=== PATIENT | male | born 1950 | race Caucasian/White ===

== ENCOUNTER 2019-01-04 11:09 | Observation (INO) ==
--- NOTE | 2019-01-04 11:24 | Emergency Department Note ---
Disposition Clinical Impression: Atrial fibrillation Qualifiers: Atrial fibrillation type: unspecified Qualified Code(s): I48.91 - Unspecified atrial fibrillation Disposition: Admitted As Inpatient Condition: Good Forms: ED Satisfaction Letter Time of Disposition: 12:36 Arrhythmia/Palpitations HPI - General Chief Complaint: ED Arrhythmia/Palpitations Stated Complaint: Afib- sent from endo Time Seen by Provider: 01/04/19 11:15 Source: patient Mode of arrival: ambulatory Limitations: no limitations Nursing Notes Reviewed: Yes Vital Signs Reviewed: Yes - History of Present Illness HPI Narrative: Patient is transferred over from endoscopy after he had routine screening colonoscopy and was noted to have atrial fibrillation without rapid rate. He has very lightheadness post colonoscopy, but is essentially asymptomatic. He denies any history of similar symptoms. He denies any specific vomiting or exacerbating factors. Symptoms began after endoscopy. He denies any chest pain, dyspnea, palpitations, confusion, recent illness, abdominal pain, melena or hematochezia, change in urination or bowel movements, rashes or edema. He denies any medication change or noncompliance. He is not on any rate co ntrolling medications at home. The after his colonoscopy showed atrial fibrillation at 84 without any ischemic changes. Pt Subjective Complaint: atrial fibrillation - Related Data Allergies Allergy/AdvReac Type Severity Reaction Status Date / Time No Known Allergies Allergy Verified 01/04/19 09:18 All systems ED: reviewed and negative except as stated. Constitutional: Denies: fever, chills, weakness, weight change Eyes: Denies: eye pain, eye discharge Cardiovascular: Denies: chest pain, dyspnea on exertion Respiratory: Denies: cough, dyspnea, wheezes, hemoptysis, stridor Gastrointestinal: Denies: abdominal pain, nausea, vomiting, diarrhea, constipation, hematemesis, melena, hematochezia Genitourinary: Denies: urgency, dysuria, frequency, hematuria Musculoskeletal: Denies: back pain, neck pain, arthralgia, myalgia Integumentary: Denies: rash, abrasion, lesions Neurological: Denies: headache, weakness, numbness, paresthesias, confusion, abnormal gait, vertigo Psychiatric: Denies: anxiety, depression, suicidal thoughts, homicidal thoughts, auditory hallucinations, visual hallucinations Endocrine: Denies: fatigue, heat or cold intolerance Hematological/Lymphatic: Denies: easy bleeding, easy bruising Allergic/Immunologic: Denies: facial swelling, urticaria Past Medical History - Past Medical History Attestation: Yes The following information was validated with the patient. Source: patient Medical history: Reports: asthma, hypertension, other Surgical history: Reports: appendectomy, cholecystectomy, orthopedic, other, vasectomy, other Psychiatric history: Reports: no psych history - Social History Smoking Status: Never smoker Alcohol use: Reports: none Drug use: Reports: none Physical Exam - General Limitations: no limitations General appearance: alert, in no apparent distress - Head Head exam: atraumatic, normocephalic, normal inspection - Eye Eye exam: Present: normal appearance, PERRL, EOMI - ENT ENT exam: normal exam, normal oropharynx, mucous membranes moist - Neck Neck exam: Present: normal inspection, full ROM, trachea midline - Chest Chest inspection: Present: normal inspection, symmetric chest wall rise - Respiratory Respiratory exam: Present: normal lung sounds bilaterally. Absent: respiratory distress - Cardiovascular Cardiovascular exam: Present: regular rate, irregular rhythm, normal heart sounds - Abdominal Exam Abdominal exam: Present: soft, Non-Tender. Absent: tenderness, distention, guarding, rebound, rigidity - Extremities Exam Extremities exam: Present: normal inspection, full ROM. Absent: tenderness, pedal edema - Back Exam Back exam: Present: normal inspection, full ROM. Absent: tenderness - Neurological Exam Neurological exam: Present: alert, oriented X3 - Psychiatric Psychiatric exam: Present: normal affect, normal mood - Skin Skin exam: Present: warm, dry Course Course Narrative: Patient found to be in new onset atrial fibrillation without rapid rate. He remains essentially symptomatic in the emergency department. No acute lab abnormalities. Heart rate ranges from 8200 in the emergency department. I give the patient dose of Lovenox for his chads vasc of 2-3. Patient placed on hospitalist service for further evaluation and management. Vital Signs Temperature 97.5 F L 01/04/19 11:18 Pulse Rate 84 01/04/19 11:18 Respiratory Rate 16 01/04/19 11:18 Blood Pressure 131/91 01/04/19 11:18 O2 Sat by Pulse Oximetry 99 01/04/19 11:18 Temperature 97.5 F L 01/04/19 11:18 Pulse Rate 84 01/04/19 11:18 Respiratory Rate 16 01/04/19 11:18 Blood Pressure 131/91 01/04/19 11:18 O2 Sat by Pulse Oximetry 99 01/04/19 11:18 Oxygen Delivery Oxygen Delivery Nasal Cannula Arrhythmia/Palpitations - Lab Data Result diagrams: 01/04/19 11:34 01/04/19 11:34 Lab Results 01/04/19 01/04/19 01/04/19 Range/Units 11:34 11:34 11:34 WBC 7.7 (4.3-11.1) K/mcL RBC 5.85 H (4.19-5.50) M/mcL Hgb 16.6 (12.9-16.9) g/dL Hct 50.4 H (37.5-50.1) % MCV 86.2 (83.0-100.0) fL MCH 28.4 (28.0-33.3) pg MCHC 32.9 (31.6-35.5) g/dL RDW 14.1 (11.5-14.5) % Plt Count 240 (140-400) K/mcL MPV 11.1 (9.4-12.4) fL Immature Gran % 0.3 (0-4) % Seg Neutrophils % 71.7 % Lymphocytes % 19.0 % Monocytes % 7.7 % Eosinophils % 0.9 % Basophils % 0.4 % Neutrophils # 5.5 (1.6-8.9) K/mcL Lymphocytes # 1.5 (0.6-4.6) K/mcL Monocytes # 0.6 (0.0-1.3) K/mcL Eosinophils # 0.1 (0.0-0.6) K/mcL Basophils # 0.0 (0.0-0.2) K/mcL PT 13.1 H (9.4-12.1) Seconds INR 1.2 APTT 37.4 H (26.0-36.0) Seconds Sodium 140 (136-145) mEq/L Potassium 4.4 (3.5-5.1) mEq/L Chloride 105 (98-107) mEq/L Carbon Dioxide 27 (23-29) mEq/L BUN 12 (8-23) mg/dL Creatinine 0.80 (0.70-1.30) mg/dL Est GFR ( Amer) > 60 (> 60) Est GFR (Non-Af Amer) > 60 (> 60) BUN/Creatinine Ratio 15 (6-26) Glucose 118 H (70-105) mg/dL Calculated Osmolality 291 (280-300) Calcium 9.8 (8.6-10.3) mg/dL Phosphorus 3.1 (2.7-4.5) mg/dL Magnesium 1.9 (1.6-2.6) mg/dL Troponin I < 0.03 (< 0.04) ng/mL TSH (0.340-5.600) mcIU/mL 01/04/19 Range/Units 11:34 WBC (4.3-11.1) K/mcL RBC (4.19-5.50) M/mcL Hgb (12.9-16.9) g/dL Hct (37.5-50.1) % MCV (83.0-100.0) fL MCH (28.0-33.3) pg MCHC (31.6-35.5) g/dL RDW (11.5-14.5) % Plt Count (140-400) K/mcL MPV (9.4-12.4) fL Immature Gran % (0-4) % Seg Neutrophils % % Lymphocytes % % Monocytes % % Eosinophils % % Basophils % % Neutrophils # (1.6-8.9) K/mcL Lymphocytes # (0.6-4.6) K/mcL Monocytes # (0.0-1.3) K/mcL Eosinophils # (0.0-0.6) K/mcL Basophils # (0.0-0.2) K/mcL PT (9.4-12.1) Seconds INR APTT (26.0-36.0) Seconds Sodium (136-145) mEq/L Potassium (3.5-5.1) mEq/L Chloride (98-107) mEq/L Carbon Dioxide (23-29) mEq/L BUN (8-23) mg/dL Creatinine (0.70-1.30) mg/dL Est GFR ( Amer) (> 60) Est GFR (Non-Af Amer) (> 60) BUN/Creatinine Ratio (6-26) Glucose (70-105) mg/dL Calculated Osmolality (280-300) Calcium (8.6-10.3) mg/dL Phosphorus (2.7-4.5) mg/dL Magnesium (1.6-2.6) mg/dL Troponin I (< 0.04) ng/mL TSH 1.219 (0.340-5.600) mcIU/mL
[2019-01-04] MEDS ORDERED: 0.9 % Sodium Chloride 1,000 ML IVC ONE (11:27)
[2019-01-04 11:52] LABS: Basophils % 0.4 %; Eosinophils # 0.1 K/mcL (0.0-0.6); Eosinophils % 0.9 %; Hematocrit 50.4 % (37.5-50.1); Hemoglobin 16.6 g/dL (12.9-16.9); Immature Granulocytes % 0.3 % (0-4); Lymphocytes # 1.5 K/mcL (0.6-4.6); Mean Corpuscular HGB Conc 32.9 g/dL (31.6-35.5); Mean Corpuscular Hemoglobin 28.4 pg (28.0-33.3); Mean Corpuscular Volume 86.2 fL (83.0-100.0); Mean Platelet Volume 11.1 fL (9.4-12.4); Monocytes # 0.6 K/mcL (0.0-1.3); Monocytes % 7.7 %; Neutrophils # 5.5 K/mcL (1.6-8.9); Platelet Count 240 K/mcL (140-400); Red Blood Count 5.85 M/mcL (4.19-5.50); Red Cell Distribution Width 14.1 % (11.5-14.5); Segmented Neutrophils % 71.7 %
[2019-01-04 12:07] LABS: INR 1.2; Prothrombin Time 13.1 Seconds (9.4-12.1)
[2019-01-04 12:09] LABS: Activated Partial Thrombo Time 37.4 Seconds (26.0-36.0)
[2019-01-04 12:12] LABS: BUN/Creatinine Ratio 15 (6-26); Blood Urea Nitrogen 12 mg/dL (8-23); Calcium 9.8 mg/dL (8.6-10.3); Carbon Dioxide 27 mEq/L (23-29); Chloride 105 mEq/L (98-107); Glucose 118 mg/dL (70-105); Magnesium 1.9 mg/dL (1.6-2.6); Osmolality,Calculated 291 (280-300); Phosphorous 3.1 mg/dL (2.7-4.5); Potassium 4.4 mEq/L (3.5-5.1); Sodium 140 mEq/L (136-145); Troponin I < 0.03 ng/mL (< 0.04); eGFR For Non-African Americans > 60 (> 60)
[2019-01-04] MEDS ORDERED: *HR* Enoxaparin 40 MG/0.4 ML SYRINGE SQ ONE (12:34)
[2019-01-04] MEDS ORDERED: *HR* Enoxaparin 100 MG/ML SYRINGE SQ ONE (13:00)
[2019-01-04 13:33] LABS: Bilirubin,Urine Negative (Negative); Blood,Urine Negative (Negative); Clarity,Urine Clear (Clear); Color,Urine Yellow (Yellow); Glucose,Urine (UA) Normal (Normal); Ketones,Urine Negative (Negative); Leukocyte Esterase,Urine Negative (Negative); Nitrite,Urine Negative (Negative); PH,Urine 5.5 pH Units (5.0-8.0); Protein,Urine 30 mg/dL (Neg-Trace); Specific Gravity,Urine 1.018 (1.010-1.025); Urobilinogen,Urine Normal (Normal)
[2019-01-04 13:37] LABS: Bacteria,Urine None Seen per hpf (None-Few); Hyaline Casts,Urine None Seen per lpf (None-Few); RBC,Urine 0-3 per hpf (0-3); Squamous Epithelial Cell,Urine Moderate per lpf (None-Few); WBC,Urine 0-3 per hpf (0-3)
[2019-01-04 13:56] LABS: Amphetamine Screen,Urine Negative ng/mL (Cutoff=1000); Barbiturate Screen,Urine Negative ng/mL (Cutoff=200); Benzodiazepines Screen,Urine Negative ng/mL (Cutoff=200); Cannabinoid Screen,Urine Negative ng/mL (Cutoff = 50); Cocaine Screen,Urine Negative ng/mL (Cutoff= 300); Opiate Screen,Urine Negative ng/mL (Cutoff=300); Phencyclidine Screen,Urine Negative ng/mL (Cutoff=25)
[2019-01-04] MEDS ORDERED: Ondansetron 4 MG/2 ML VIAL IVP PRN (14:52)
[2019-01-04] MEDS ORDERED: Naloxone 0.4 MG/ML INJ IVP PRN (14:52)
[2019-01-04] MEDS ORDERED: *HR* HYDROcodone/Acet 5/325 mg TABLET PO PRN (14:52)
[2019-01-04] MEDS ORDERED: Acetaminophen 325 MG TABLET PO PRN (14:52)
--- NOTE | 2019-01-04 15:36 | Internal Med History&Physical ---
Date of Encounter: 01/04/19 Time of Encounter: 15:33 Internal Medicine - H&P: HPI Chief complaint: Afib Admitted From: Emergency Dept Plans for Post Hospital Care: Home History of present illness: Mr. Cowan is a 68 year old male with known PMH of HTN and Asthma patient had scheduled elective colonoscopy today. Due and colonoscopy he was found to have new onset a fib with a rate controlled. However post persistent patient complained about lightheadedness/dizziness and lethargic. Patient was sent to ER for further evaluation. In the ER he still in a fib with the rate controlled ventricular rate. He denied any chest pain. He does have questionable sleep apnea. Denied any shortness of breath. Still feeling lightheadedness/dizziness Past Med Surg Social Fam HX - Past Medical History Medical history: hypertension, other Psychiatric history: no psych history - Past Surgical History Surgical History: appendectomy, cholecystectomy, orthopedic, other, vasectomy, other Additional surgical history: Knee Sx x 4. - Social History Smoking Status: Never smoker Smokeless Tobacco Status: No Alcohol use: none Drug use: none - Family History Mother Hx Family Cardiac Disorders: Yes (Afib) Father Hx Family Cardiac Disorders: Yes (MA) Internal Medicine - H&P: Meds Aspirin [Lo-Dose Aspirin EC] 81 mg PO DAILY 01/04/19 [History] Lisinopril [Zestril] 20 mg PO DAILY 01/04/19 [History] hydroCHLOROthiazide [Hydrochlorothiazide] 25 mg PO DAILY 01/04/19 [History] Allergy/AdvReac Type Severity Reaction Status Date / Time No Known Allergies Allergy Verified 01/04/19 09:18 All Systems PM: A 10-system review of systems was performed and is negative for pertinent findings except as documented above in the HPI. Review of systems: All the systems are reviewed everything is benign except the systems and symptoms I mentioned in the history of present illness - Constitutional Vitals: Temp Pulse Resp BP Pulse Ox 97.5 F L 84 16 131/91 99 01/04/19 11:18 01/04/19 11:18 01/04/19 11:18 01/04/19 11:18 01/04/19 11:18 General appearance: Present: cooperative, A&O X 3, no acute distress, answers questions appropriately Exam: a - Head Head exam: Present: atraumatic, normal inspection - Neck Neck exam general surgery: Present: supple - Respiratory Respiratory exam: Present: decreased breath sounds. Absent: rales, respiratory distress, rhonchi, wheezes - Cardiovascular Cardiovascular exam: Present: irregular rhythm, +S1, +S2. Absent: systolic murmur, tachycardia - GI/Abdominal GI/Abdominal exam: Present: normal bowel sounds, soft. Absent: rebound, rigid, tenderness - Extremities Exam Extremities exam: Absent: calf tenderness, pedal edema, tenderness - Back Exam Back exam: Absent: CVA tenderness (L), CVA tenderness (R) - Neurological Exam Neurological exam: Present: alert, oriented X3. Absent: speech deficit - Psychiatric Psychiatric exam: Present: normal affect, normal mood - Skin Skin exam: Absent: rash Internal Med - H&P Results - Labs CBC & Chem 7: 01/04/19 11:34 01/04/19 11:34 Labs: Short CBC 01/04/19 Range/Units 11:34 WBC 7.7 (4.3-11.1) K/mcL Hgb 16.6 (12.9-16.9) g/dL Hct 50.4 H (37.5-50.1) % Plt Count 240 (140-400) K/mcL Neutrophils # 5.5 (1.6-8.9) K/mcL BMP 01/04/19 11:34 Sodium 140 Potassium 4.4 Chloride 105 Carbon Dioxide 27 BUN 12 Creatinine 0.80 Glucose 118 H Calcium 9.8 Cardiac Enzymes 01/04/19 Range/Units 11:34 Troponin I < 0.03 (< 0.04) ng/mL Urine 01/04/19 Range/Units 13:05 Urine Color Yellow (Yellow) Urine Clarity Clear (Clear) Urine pH 5.5 (5.0-8.0) pH Units Ur Specific [place] 1.018 (1.010-1.025) Urine Protein 30 H (Neg-Trace) mg/dL Urine Glucose (UA) Normal (Normal) mg/dL - Impressions ITS Impressions Chest X-Ray 01/04/19 11:19 IMPRESSION: 1. No active pulmonary disease. D/ / Olivier Sanchez MD / Olivier Sanchez MD Interpreting Provider: Olivier Sanchez MD - Assessment and Plan (1) New onset a-fib Current Visit: Yes Status: Acute Assessment and plan: Place the pt into tele for observation unclear etiology will check serial trop to r/o any ischemic event seems to be most likely due to procedural stress, dehydration as well as possible TYLER too started him on Cardizem 30mg PO QID for now CHADSVASC score 2 - Was given Lovenox in the ER Will check 2 D Echo IV hydration cont close monitoring electrolytes (2) HTN (hypertension) Current Visit: Yes Status: Acute Assessment and plan: resumed home med Lisinopril held HCTZ on Cardizem 30mg QID Qualifiers: Hypertension type: essential hypertension Qualified Code(s): I10 - Essential (primary) hypertension (3) TYLER (obstructive sleep apnea) Current Visit: Yes Status: Acute Assessment and plan: He does have possible TYLER may need out pt sleepy study talked to pt about this - Time Spent With Patient Total time spent is greater than 50% in coordination of care (as documented) at patient's floor/unit and/or counseling patient:
[2019-01-04] MEDS: 0.9 % Sodium Chloride 1,000 ML IVC SCH (16:12)
[2019-01-05] MEDS: 0.9 % Sodium Chloride 1,000 ML IVC SCH ×2 (00:09→08:31)
--- NOTE | 2019-01-05 04:01 | Electrocardiograph Report ---
[facility] Test Date: 2019-01-04 Pat Name: Jordan Cowan Department: EXAM3 Room: [facility] Gender: M Diesel Technician Mechanic: : [id number] Requested By: Jacek Noble Order Number: [id number] Reading MD: Greg Boyd Measurements Intervals [place] Rate: 88 P: SD: QRS: -6 QRSD: 84 T: 31 QT: 388 QTc: 451 Interpretive Statements Atrial fibrillation Electronically Signed On 01-05-2019 3:59:48 EDT by Greg Boyd
[2019-01-05 07:24] VITALS: BP 131/78
[2019-01-05] MEDS ORDERED: Lisinopril 20 MG TABLET PO SCH (09:00)
[2019-01-05] MEDS ORDERED: Aspirin Enteric Coated 81 MG Tablet PO SCH (09:00)
[2019-01-05] MEDS ORDERED: Apixaban 5 MG TABLET PO SCH (09:00)
[2019-01-05] MEDS ORDERED: hydroCHLOROthiazide 25 MG TABLET PO SCH (09:00)
--- NOTE | 2019-01-05 09:00 | Discharge Summary ---
- NOTES TO OUTPATIENT PROVIDER Notes to Outpatient Provider: f/u with PCP in one week. f/u with Cardiology in 2-3 weeks. f/u with Dr. Casey for sleep study. Orders not resulted at time of discharge: Pending orders 01/05/19 04:00 Basic Metabolic Panel AM 0400 Complete Blood Count [HEME] AM 0400 Lipid Panel AM 0400 Date of Encounter: 01/05/19 Time of Encounter: 08:52 - Discharge Diagnosis (1) New onset a-fib Priority: Primary Status: Acute (2) HTN (hypertension) Priority: Secondary Status: Acute Qualifiers: Hypertension type: essential hypertension Qualified Code(s): I10 - Essential (primary) hypertension (3) TYLER (obstructive sleep apnea) Priority: Secondary Status: Acute Hospital course: Mr. Cowan is a 68 year old male with known PMH of HTN and Asthma patient had scheduled elective colonoscopy today. Due and colonoscopy he was found to have new onset a fib with a rate controlled. However post persistent patient complained about lightheadedness/dizziness and lethargic. Patient was sent to ER for further evaluation. In the ER he still in a fib with controlled ventricular rate. He denied any chest pain. He does have questionable sleep apnea. He was admitted in the hospital and placed him on security installer. His his serial troponin were negative. His 2 D Echo showed preserved LVEF and indeterminate diastolic function. He was started on IV hydration and Cardizem PO. His HR well controlled now, however he is still in A fib. He denied any light headedness / dizzy. His CHASVASC score 2 ( Age and HTN ), since he still in Afib, placed him on Anti coag Eliquis for now and recommend to f/u with PCP and Cardiology as an out pt. He might have sleep apnea, so recommend to go for out pt sleepy study. - Time Spent with Patient Total time spent providing and/or coordinating discharge services: - Discharge Medications Prescriptions: New Diltiazem CD (24hr) [Cardizem CD] 120 mg PO DAILY #30 cap.er.24h Apixaban [Eliquis] 5 mg PO BID #0 tablet Continued Lisinopril [Zestril] 20 mg PO DAILY Aspirin [Lo-Dose Aspirin EC] 81 mg PO DAILY Discontinued hydroCHLOROthiazide [Hydrochlorothiazide] 25 mg PO DAILY Home Medications: Aspirin [Lo-Dose Aspirin EC] 81 mg PO DAILY 01/04/19 [History] Lisinopril [Zestril] 20 mg PO DAILY 01/04/19 [History] Apixaban [Eliquis] 5 mg PO BID #0 tablet 01/05/19 [Rx] Diltiazem CD (24hr) [Cardizem CD] 120 mg PO DAILY #30 cap.er.24h 01/05/19 [Rx] Allergies/Adverse Reactions: Allergy/AdvReac Type Severity Reaction Status Date / Time No Known Allergies Allergy Verified 01/04/19 09:18 Date of admission: 01/04/19 14:19 Primary care physician: Jez Pendleton MD - Constitutional Vitals: Temp Pulse Resp BP Pulse Ox 97.9 F 72 17 131/78 97 01/05/19 06:51 01/05/19 06:51 01/05/19 06:51 01/05/19 06:51 01/05/19 06:51 General appearance: Present: cooperative, A&O X 3, no acute distress, answers questions appropriately Exam: Gen: Alert, awake, Oriented to time,place and person Chest: Diminished breath sounds B/L, No wheezing, No crackles, No rales Heart: S1S2+ , Afib - rate controlled, No murmurs Abd: Soft, NT, BS +, No organomegaly Ext: No edema, pulses are palpable, No calf tenderness Neuro : Benign findings Skin: No rash. - Patient Status Disposition: Home, Self-Care Condition: Good Overall status at discharge: patient is back to baseline - Discharge Instructions Follow Up With: Jez Pendleton MD [Primary Care Provider] - Gregory Blake MD [Non-Partnered Physician] - Alida Casey MD [Partnered Physician] - - Diet and Activity Activity: increase activity as tolerated Diet: low salt diet
[2019-01-05 09:29] LABS: Basophils % 0.7 %; Eosinophils # 0.1 K/mcL (0.0-0.6); Hematocrit 47.1 % (37.5-50.1); Hemoglobin 15.3 g/dL (12.9-16.9); Immature Granulocytes % 0.2 % (0-4); Lymphocytes # 1.6 K/mcL (0.6-4.6); Lymphocytes % 25.7 %; Mean Corpuscular HGB Conc 32.5 g/dL (31.6-35.5); Mean Corpuscular Hemoglobin 28.1 pg (28.0-33.3); Mean Corpuscular Volume 86.6 fL (83.0-100.0); Mean Platelet Volume 11.3 fL (9.4-12.4); Monocytes # 0.5 K/mcL (0.0-1.3); Monocytes % 7.8 %; Neutrophils # 3.9 K/mcL (1.6-8.9); Platelet Count 207 K/mcL (140-400); Red Blood Count 5.44 M/mcL (4.19-5.50); Red Cell Distribution Width 14.1 % (11.5-14.5); Segmented Neutrophils % 64.6 %
[2019-01-05 09:47] LABS: BUN/Creatinine Ratio 14 (6-26); Blood Urea Nitrogen 10 mg/dL (8-23); Calcium 8.8 mg/dL (8.6-10.3); Carbon Dioxide 25 mEq/L (23-29); Chloride 111 mEq/L (98-107); Chol/HDL Ratio 6.4 (0-4.9); Cholesterol 178 mg/dL (< 200); Glucose 166 mg/dL (70-105); HDL Cholesterol 28 mg/dL (40-59); LDL Cholesterol,Calculated 106 mg/dL (0-99); Osmolality,Calculated 295 (280-300); Potassium 3.8 mEq/L (3.5-5.1); Sodium 141 mEq/L (136-145); Triglycerides 219 mg/dL (< 150); eGFR For Non-African Americans > 60 (> 60)
[2019-01-05] MEDS ORDERED: Diltiazem CD (24hr) 120 MG CAPSULE PO SCH (12:00)
== END 2019-01-05 11:15 | disposition home or self-care (01) ==
LOC: EMEROOARM 11:09 → 2SOUTHHOLD 11:09
PROVIDERS: ADMIT Student in an Organized Health Care Education/Training Program; ATTEND Student in an Organized Health Care Education/Training Program

== ENCOUNTER 2021-12-18 09:59 | Inpatient (IN) ==
[2021-12-18] MEDS ORDERED: CeFAZolin Syr 2,000MG/20 ML 2,000 MG/20 ML SYRINGE IVPB ONE (10:25)
[2021-12-18] MEDS ORDERED: Ringers Solution, Lactated 1,000 ML IVC SCH (10:30)
[2021-12-18] MEDS ORDERED: Promethazine 6.25 MG in Water for inj. (sterile) 20 ML IVPB PRN (11:07)
[2021-12-18] MEDS ORDERED: Ondansetron 4 MG/2 ML VIAL IVP PRN ×2 (11:07→18:59)
[2021-12-18] MEDS ORDERED: *HR* OxyCODONE Immed Rel 5 MG TABLET PO PRN ×2 (11:07→18:59)
[2021-12-18] MEDS ORDERED: Heparin 1,000 UNITS/500 mL 500 ML ONE (11:23)
[2021-12-18] MEDS ORDERED: *HR* FentaNYL (PF) 100 MCG/2 ML VIAL ONE (11:48)
[2021-12-18] MEDS ORDERED: *HR* Rocuronium Bromide 50 MG/5 ML VIAL ONE ×3 (11:48→14:26)
[2021-12-18] MEDS ORDERED: Ondansetron 4 MG/2 ML VIAL ONE (11:48)
[2021-12-18] MEDS ORDERED: Lidocaine HCL 4 ML Topical Solution (Laryng-O-Jet Kit Sterile Pak) TP ONE (11:48)
[2021-12-18] MEDS ORDERED: Lidocaine -MPF 2% 2 ML VIAL ONE ×2 (11:48→13:25)
[2021-12-18] MEDS ORDERED: *HR* Propofol 200 MG/20 ML VIAL IVP ONE (11:48)
[2021-12-18] MEDS ORDERED: EPHEDrine 50 MG/ML VIAL ONE (12:10)
[2021-12-18] MEDS ORDERED: *HR* Phenylephrine 10 MG/ML VIAL ONE (12:10)
[2021-12-18] MEDS ORDERED: *HR* Vasopressin 20 UNIT/ML VIAL ONE (12:17)
[2021-12-18] MEDS ORDERED: Albumin Human 5% 0 GM/0 ML IV.SOLN ONE (12:17)
[2021-12-18] MEDS ORDERED: Bupivacaine/EPI 1:200k 0.25% 50 ML VIAL ONE (12:26)
[2021-12-18] MEDS ORDERED: Acetaminophen IV 1,000 MG/100 ML BAG IVPB ONE ×2 (13:56→13:57)
[2021-12-18] MEDS ORDERED: *HR* HYDROMORPHONE 2 MG/ML VIAL ONE (14:02)
[2021-12-18] MEDS: *HR* HYDROmorphone PF 0.5 MG/0.5 ML SYRINGE IVP PRN ×2 (16:55→17:20)
[2021-12-18] MEDS ORDERED: *HR* HYDROcodone/Acet 5/325 mg TABLET PO PRN ×2 (18:59)
[2021-12-18] MEDS ORDERED: Dextrose 4 GM Chewable Tablets PO PRN ×2 (18:59)
[2021-12-18] MEDS ORDERED: Naloxone 0.4 MG/ML INJ IVP PRN (18:59)
[2021-12-18] MEDS ORDERED: *HR* Belladonna Alkaloids/Opium 30 MG RECTAL SUPPOSITORY RC PRN (18:59)
[2021-12-18] MEDS ORDERED: *HR* Dextrose 50 % in Water (Syg) 50 ML SYRINGE IVP PRN (18:59)
[2021-12-18] MEDS ORDERED: D5% in Water 1,000 ML IVC PRN (18:59)
[2021-12-18] MEDS ORDERED: 0.9 % Sodium Chloride 1,000 ML IVC SCH (18:59)
[2021-12-18] MEDS: CeFAZolin 2 GM/120 ML BAG IVPB SCH (19:52)
[2021-12-19] MEDS: CeFAZolin 2 GM/120 ML BAG IVPB SCH (04:53)
[2021-12-19 05:28] LABS: Basophils % 0.1 %; Hematocrit 37.9 % (37.5-50.1); Hemoglobin 12.4 g/dL (12.9-16.9); Immature Granulocytes % 0.3 % (0-4); Lymphocytes # 0.5 K/mcL (0.6-4.6); Lymphocytes % 5.5 %; Mean Corpuscular HGB Conc 32.7 g/dL (31.6-35.5); Mean Corpuscular Hemoglobin 27.9 pg (28.0-33.3); Mean Corpuscular Volume 85.2 fL (83.0-100.0); Mean Platelet Volume 12.2 fL (9.4-12.4); Monocytes # 0.7 K/mcL (0.0-1.3); Neutrophils # 7.9 K/mcL (1.6-8.9); Platelet Count 188 K/mcL (140-400); Red Blood Count 4.45 M/mcL (4.19-5.50); Red Cell Distribution Width 14.2 % (11.5-14.5); Segmented Neutrophils % 86.1 %; White Blood Count 9.2 K/mcL (4.3-11.1)
[2021-12-19 05:43] LABS: BUN/Creatinine Ratio 15 (6-26); Blood Urea Nitrogen 17 mg/dL (8-23); Calcium 8.7 mg/dL (8.6-10.3); Carbon Dioxide 23 mEq/L (23-29); Chloride 107 mEq/L (98-107); Glucose 123 mg/dL (70-105); Osmolality,Calculated 287 (280-300); Sodium 137 mEq/L (136-145); eGFR For African Americans > 60 (> 60); eGFR For Non-African Americans > 60 (> 60)
[2021-12-19] MEDS ORDERED: Insulin LISPRO 300 UNITS/3 ML VIAL SUBQ SCH (07:30)
[2021-12-19 07:50] VITALS: BP 146/67; PULSE 50; TEMP 97.9; O2SAT 93
[2021-12-19] MEDS ORDERED: carvediloL 6.25 MG TABLET PO SCH (08:00)
[2021-12-19] MEDS ORDERED: hydroCHLOROthiazide 25 MG TABLET PO SCH (09:00)
== END 2021-12-19 15:48 | disposition home or self-care (01) | DRG 661 ==
LOC: SAMDAY 09:59 → 3ANU 11:55
PROVIDERS: ADMIT Urology; ATTEND Urology